=== PATIENT | male | born 1985 | race Caucasian/White ===

== ENCOUNTER 2018-02-08 03:01 | Emergency (ER) | payer MEDICAID ==
[~2018-02-08] VITALS: Ht 170.2 cm; Wt 80.0 kg
[~2018-02-08 03:01] MED LIST: LAM25
[2018-02-08] MEDS ORDERED: KETOROLAC 60MG/2ML VIAL IM ONE (04:15)
[2018-02-08] MEDS ORDERED: DEXAMETHASONE 10 MG/ML VIAL IM ONE (04:15)
[2018-02-08] MEDS ORDERED: HYDROCODONE/ACETAMINOPHEN 10/325MG TABLET PO ONE (05:15)
[2018-02-08 06:08] VITALS: BP 145/97
== END 2018-02-08 06:16 | disposition home or self-care (01) ==
LOC: ER 03:01
DX: M54.12 Radiculopathy, cervical region (principal); J45.909 Unspecified asthma, uncomplicated; F17.200 Nicotine dependence, unspecified, uncomplicated; F12.10 Cannabis abuse, uncomplicated; Z98.890 Other specified postprocedural states
CPT/HCPCS: 96372; 99284; J1100; J1885

== ENCOUNTER 2018-02-21 21:02 | Emergency (ER) | payer MEDICAID ==
[~2018-02-21] VITALS: Ht 172.7 cm; Wt 78.0 kg
[2018-02-21 23:59] VITALS: BP 137/88
[2018-02-22] MEDS ORDERED: IBUPROFEN 800MG TABLET PO ONE
== END 2018-02-22 00:45 | disposition home or self-care (01) ==
LOC: ER 21:02
DX: S60.221A Contusion of right hand, initial encounter (principal); F12.10 Cannabis abuse, uncomplicated; F17.200 Nicotine dependence, unspecified, uncomplicated; Z79.899 Other long term (current) drug therapy; Z98.890 Other specified postprocedural states; X58.XXXA Exposure to other specified factors, initial encounter; Y93.89 Activity, other specified; Y92.89 Other specified places as the place of occurrence of the external cause; Y99.8 Other external cause status
CPT/HCPCS: 73130; 99284

== ENCOUNTER 2018-10-31 18:08 | Emergency (ER) | payer MEDICAID ==
[~2018-10-31] VITALS: Ht 170.2 cm; Wt 79.0 kg
[2018-10-31 18:18] VITALS: BP 175/82
== END 2018-10-31 19:20 | disposition left against medical advice (07) ==
LOC: ER 18:08
DX: Z53.21 Procedure and treatment not carried out due to patient leaving prior to being seen by health care provider (principal); F17.210 Nicotine dependence, cigarettes, uncomplicated
CPT/HCPCS: 93005